=== PATIENT | male | born 2000 | race Hispanic/Latino ===

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

== ENCOUNTER 2020-07-12 15:40 | Emergency (ER) | payer MEDICAID ==
[2020-07-12] MEDS ORDERED: ASPIRIN 325 MG TABLET ONE (15:55)
[2020-07-12 16:12] LABS: BASOPHILS % (AUTO) 0.8 % (0.0-5.0); EOSINOPHILS % (AUTO) 1.6 % (0.0-8.0); HEMATOCRIT 46.1 % (42-54); LYMPHOCYTES % (AUTO) 38.9 % (21.0-51.0); MEAN CORPUSCULAR HEMOGLOBIN 30.7 pg (27.0-33.0); MEAN CORPUSCULAR HGB CONC 34.1 g/dL (32.0-36.0); MONOCYTES % (AUTO) 6.3 % (3.0-13.0); NEUTROPHILS % (AUTO) 52.1 % (40.0-77.0); PLATELET COUNT (AUTO) 185 K/uL (130-400); RED BLOOD CELL COUNT(AUTO) 5.12 MIL/uL (4.50-6.20); RED CELL DISTRIBUTION WIDTH 12.4 % (11.0-15.5); WHITE BLOOD COUNT (AUTO) 6.2 K/uL (4.8-10.8)
[2020-07-12 16:14] LABS: APPEARANCE,URINE Clear (CLEAR); BILIRUBIN,URINE Negative (NEGATIVE); COLOR,URINE Yellow (YELLOW); GLUCOSE, URINE (UA) Negative (NEGATIVE); KETONES,URINE Negative (NEGATIVE); LEUKOCYTE ESTERASE ,URINE Negative (NEGATIVE); NITRATE,URINE Negative (NEGATIVE); OCCULT BLOOD,URINE Negative (NEGATIVE); PROTEIN,URINE Negative (NEGATIVE)
[2020-07-12 16:20] LABS: AMPHET/METH SCREEN,URINE NEGATIVE (NEGATIVE); BARBITURATE SCREEN, URINE NEGATIVE (NEGATIVE); BENZODIAZEPINES SCREEN,URINE NEGATIVE (NEGATIVE); CANNABINOID SCREEN,URINE NEGATIVE (NEGATIVE); COCAINE SCREEN,URINE NEGATIVE (NEGATIVE); OPIATE SCREEN,URINE NEGATIVE (NEGATIVE); PHENCYCLIDINE SCREEN,URINE NEGATIVE (NEGATIVE)
[2020-07-12 16:21] LABS: CREATININE 1.1 mg/dL (0.5-1.5); POTASSIUM 3.7 mmol/L (3.5-5.1)
[2020-07-12 16:24] LABS: PROTHROMBIN TIME 10.9 SEC (9.6-11.6)
[2020-07-12 16:25] LABS: PARTIAL THROMBOPLASTIN TIME 26.9 SEC (26.3-35.5)
[2020-07-12 16:26] LABS: ALBUMIN 4.5 g/dL (3.5-5.0); BILIRUBIN,TOTAL 0.5 mg/dL (0.2-1.0)
== END 2020-07-12 20:22 | disposition home or self-care (01) ==
LOC: EDH 15:40
DX: R00.2 Palpitations (principal); R42 Dizziness and giddiness; R07.89 Other chest pain; M41.9 Scoliosis, unspecified
CPT/HCPCS: 36415; 71045; 80053; 80305; 81003; 82550; 84484; 85025; 85610; 85651; 85730; 93005

== ENCOUNTER → 2020-09-08 | Outpatient (CLI) | payer MEDICAID | END | disposition home or self-care (01) | LOC: SHCH 13:17 | PROVIDERS: ATTEND Internal Medicine Cardiovascular Disease | DX: R55 Syncope and collapse (principal); R00.2 Palpitations | CPT/HCPCS: 93306; 93356 ==

== ENCOUNTER 2024-01-16 18:43 | Emergency (ER) | payer MEDICAID ==
[~2024-01-16] VITALS: Ht 165.1 cm; Wt 38.6 kg
--- NOTE | 2024-01-16 19:59 | NUR ---
COVID, FLU AND STREP SWABS COLLECTED AND SENT
[2024-01-16 20:15] LABS: RAPID GROUP A STREP negative (NEGATIVE)
[2024-01-16 20:22] LABS: SARS-CoV-2, RNA, NAAT NEGATIVE SARS CoV-2 (NEGATIVE)
[2024-01-16 20:25] LABS: INFLUENZA TYPE A Negative For Type A (NEGATIVE); INFLUENZA TYPE B Negative For Type B (NEGATIVE)
--- NOTE | 2024-01-16 21:08 | ERN ---
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 He has been complaining of headache, chest pain since yesterday. Apparently his siblings have similar symptoms. His mother denied any fever, nausea, vomiting. Allergies: Coded Allergies: No Known Allergies (Unverified Allergy, Unknown, 07/12/20) Home Meds Active Scripts Brompheniramine/Phenylephrine (Dimetapp Cold-Allergy Liquid) 1 Mg-2.5 Mg/5 Ml Solution, 5 ML PO TID PRN for cough for 5 Days, #200 ML 0 Refills Prov:KADY LAYNE MD 01/16/24 Benzonatate (Tessalon Perles) 100 Mg Cap, 1 CAP PO bd for cough for 5 Days, #10 CAP 0 Refills Prov:KADY LAYNE MD 01/16/24 Past Medical History Past Medical History: Other Additional Past Medical Hx: DEAF AND MUTE, SCOLIOSIS, CP Surgical History: Other Surgical History Other: BILATERAL FEET, HERNIA Review of System Dictation REVIEW OF SYSTEMS Positive for cough, ear pain, sore throat, headache CONSTITUTIONAL: Denies fevers, chills, or night sweats. No unintentional weight loss reported. ENT: No hearing loss, otalgia, otorrhea, rhinitis, rhinorrhea, hoarseness, or sore throat. CARDIOVASCULAR: Denies any exertional angina, dyspnea on exertion, orthopnea, paroxysmal nocturnal dyspnea, palpitations claudication. PULMONARY: Denies any shortness of breath, cough, phlegm / sputum, hemoptysis, pleuritic chest pain. SLEEP: Denies morning headaches, daytime somnolence or napping. Denies difficulty falling asleep, staying asleep, waking from sleep. Denies knowledge of snoring. GASTROINTESTINAL: Denies any type of dysphagia to either liquids or solids. Denies nausea, vomiting, abdominal pain, diarrhea, constipation, blood in stools . NEUROLOGICAL: Denies headache, motor weakness, sensory deficit, vertigo / spinning sensation, gait abnormalities, or tremors. GENITOURINARY: Denies frequency, urgency, nocturia, hematuria or incontinence, low urinary stream, straining to void, urinary intermittency or hesitancy ENDOCRINOLOGY: Denies polyuria, polydipsia, polyphagia or heat / cold intolerance. HEMATOLOGY: Denies thrombophilia / previous clots, or coagulopathy / bleeding disorders. ONCOLOGIC: Denies personal history of malignancy. DERMATOLOGIC: Denies rashes or pruritus. PSYCHIATRIC: Denies any suicidal or homicidal ideation. Denies hallucinations. Initial Vital Sign VS Vital Signs Date Time Temp Pulse Resp B/P (MAP) Pulse Ox O2 Delivery O2 Flow Rate FiO2 01/16/24 19:59 97.2 83 16 124/74 100 Room Air Physical Exam Dictation PHYSICAL EXAM GENERAL APPEARANCE: Well nourished . Awake and alert. Oriented to time, place and person. No acute cardiopulmonary distress. HEENT: Head normocephalic , atraumatic. Sclera anicteric . Pupils are round and reactive. Extraocular movements intact . No conjunctival injection. No nasal congestion. Throat congestion plus, mild enlargement of bilateral tonsils.Oral mucosa moist. NECK: Supple. No JVD. No thyromegaly. No submental, submandibular, pre- /postauricular, occipital or supraclavicular lymphadenopathy. No carotid bruits. LUNGS: Clear to auscultation bilaterally . No rales, rhonchi or any wheezing. Equal tactile fremitus. Resonant to percussion . Chest wall tenderness elicited CARDIOVASCULAR: Regular rate and rhythm. S1 and S2 normal. No rubs, murmurs or gallops. ABDOMEN: Soft, nontender, and nondistended. There is no rebound tenderness, voluntary guarding, or rigidity. No hepatosplenomegaly. Bowel sounds normal in all four quadrants . NEUROLOGICAL: Cranial nerves II-XII grossly intact. Motor is 5/5 in bilateral upper and lower extremities . No sensory deficits. EXTREMITIES: No edema, No cyanosis , No clubbing. Good capillary refill. SKIN: No skin breakdown. No rashes or lesions . PSYCHIATRY: Normal affect .No auditory or visual hallucinations. Normal speech. No dysarthria. Results (Laboratory/Radiology) Laboratory/Radiology Laboratory Tests Test 01/16/24 20:00 Influenza Type A Antigen Negative For Type A Influenza Type B Antigen Negative For Type B SARS-CoV-2, RNA, NAAT NEGATIVE SARS CoV-2 Group A Streptococcus Rapid negative (NEGATIVE) ED Course ED Course Orders Procedure Category Date Status Time Covid Rna Naat LAB 01/16/24 Complete 19:58 Influenza Type A & B, LAB 01/16/24 Complete Rapid 19:58 Rapid (Group A Strep) LAB 01/16/24 Complete 19:58 Vital Signs Date Time Temp Pulse Resp B/P (MAP) Pulse Ox O2 Delivery O2 Flow Rate FiO2 01/16/24 19:59 97.2 83 16 124/74 100 Room Air Medical Decision Making MDM Differential diagnosis : Acute viral bronchitis, strep throat, flu, COVID infection Rationale: Tests considered and ordered secondary to shared decision making include: I will re-evaluate the patient after treatment and diagnostic exams have returned to determine whether they require further testing, can be safely disc harged home, or need admission for further treatment and evaluation. Given the social determinants of health affecting care, including literacy, access to medical care, prescription drug management, and [id number] drugs, I will ensure that treatment plans are tailored accordingly. There are no social concerns with this patient. Risk of complication and/or morbidity or mortality of patient management: None Need for hospitalization: Patient does not meet criteria for hospitalization. Need for emergency major/minor surgery: No Prescription drug management Prescriptions will include symptomatic care Medications-Per medication reconciliation Previous outside records reviewed: Old ER visits. Patient's prior external medical records from other ER visits were reviewed by me as indicated. Prior testing and results from previous visits were reviewed. Prior tests were taken into account with medical decision making and resource utilization, independent historian/historians were used to obtain complete medic al history. I independently interpreted the test that were performed, results were reviewed by me and considered findings on radiology. Medical management and examination interpretation discussions was done by me with other qualified healthcare professionals as indicated for the patient's care. Revaluation his nasal swabs for flu , COVID and strep throat came back negative. His vitals are stable. He will be discharged on cough medications. Disposition : Home DX & DISP Disposition: Discharge Departure Impression: Primary Impression: Acute viral bronchitis Critical Time: 30 minutes Condition: Stable Assign Patient to: Primary care physician Scripts Brompheniramine/Phenylephrine (Dimetapp Cold-Allergy Liquid) 1 Mg-2.5 Mg/5 Ml Solution 5 ML PO TID PRN for cough for 5 Days, #200 ML 0 Refills Prov: KADY LAYNE MD 01/16/24 Benzonatate (Tessalon Perles) 100 Mg Cap 1 CAP PO bd for cough for 5 Days, #10 CAP 0 Refills Prov: KADY LAYNE MD 01/16/24 Additional Instructions: Follow-up with primary care provider in 1-2 days Take medications as directed here in the emergency room. It is okay to continue home medications unless otherwise discussed during your visit in the emergency room today. Increase oral hydration. If a wound culture or urine culture was ordered here in the emergency room department, please follow-up with primary care provider and advised them to get reports from our facility. If you had any Sourav wrap/splints that were applied here placed to not remove them until you see your primary care physician. Return to your nearest emergency room if symptoms worsen or if there is no improvement. Call 911 if you need immediate assistance. Referrals: HALLEY CANDELARIO (PCP) I performed a substantive portion of the visit. I have reviewed and personally made and approve the management plan that is documented in the notes by myself with KIRSTIE/resident. I acknowledged full responsibility for the patient's management plan. KADY LAYNE MD Jan 16, 2024 21:08 JOIE MICHEL DO Jan 16, 2024 21:50
[2024-01-16] MEDS ORDERED: BENZ-39 PO (21:45)
[2024-01-16] MEDS ORDERED: [UNRECOGNIZED DRUG - CODE] PO (21:45)
[2024-01-16 21:53] VITALS: BP 124/72; PULSE 88; RESP 18; TEMP 98.3; O2SAT 100
== END 2024-01-16 21:59 | disposition home or self-care (01) ==
LOC: EDH 18:43
DX: J20.8 Acute bronchitis due to other specified organisms (principal); B97.89 Other viral agents as the cause of diseases classified elsewhere; Z20.822 Contact with and (suspected) exposure to COVID-19; Z79.899 Other long term (current) drug therapy
CPT/HCPCS: 87635; 87804; 87880